=== PATIENT | female | born 1985 | race Caucasian/White ===

== ENCOUNTER 2017-08-25 20:49 | Emergency (ER) | payer BC ==
[~2017-08-25] VITALS: Ht 167.6 cm; Wt 106.0 kg
[2017-08-25 21:01] VITALS: BP 134/92
[2017-08-25] MEDS ORDERED: AUGMENTIN875 MG PO (21:52)
== END 2017-08-25 22:22 | disposition home or self-care (01) ==
LOC: EME 20:49
DX: R59.0 Localized enlarged lymph nodes (principal); Z98.890 Other specified postprocedural states
CPT/HCPCS: 99281; 99283